=== PATIENT | male | born 1995 | race Caucasian/White ===

== ENCOUNTER 2017-01-09 18:28 | Emergency (ER) | payer OTHER ==
--- NOTE | 2017-01-09 18:59 | EDM.PDOC ---
ED HPI GENERAL MEDICAL PROBLEM - General Chief Complaint: Lower Extremity Injury/Pain Stated Complaint: LEFT ANKLE PAIN Time Seen by Provider: 01/09/17 18:57 Source of Information: Reports: Patient History Limitations: Reports: No Limitations - History of Present Illness INITIAL COMMENTS - FREE TEXT/NARRATIVE: HISTORY AND PHYSICAL: []21-year-old male presenting with left foot pain 3 days History of Present Illness: [Patient rolled his foot 3 days ago while at work/ arch of his foot is erythematous] Review of Systems: As per history of present illness and below otherwise all systems reviewed and negative. Past medical history: As per history of present illness and as reviewed below otherwise noncontributory. Surgical history: As per history of present illness and as reviewed below otherwise noncontributory. Social history: No reported history of drug or alcohol abuse. Family history: As per history of present illness and as reviewed below otherwise noncontributory. Physical exam: HEENT: Atraumatic, normocehpalic, pupils reactive, negative for conjunctival pallor or scleral icterus, mucous membranes moist, throat clear, neck supple, nontender, trachea midline. Lungs: Clear to auscultation, breath sounds equal bilaterally, chest non tender. Heart: S1S2, regular, negative for clicks, rubs, or JVD. Abdomen: Soft, nondistended, nontender. Negative for masses or hepatossplenmegaly. Negative for costovertebral tenderness. Pelvis: Stable nontender. Genitourinary: Deferred. Rectal: Deferred Extremities: Atraumatic, negative for cords or calf pain. Neurovascular unremarkable. Neuro: Awake, alert, oriented. Cranial nerves II through XII unremarkable. Cerebellum unremarkable. Motor and sensory unremarkable throughout. Exam nonfocal. X-ray shows a remote fracture of the navicular bone Discussed this with patient Will refer to orthopedist Diagnostics: [X-ray left foot] Therapeutics: [Walker boot] Impression: [Navicular bone fracture] Plan: []Discharged to home Contact orthopedics on Thursday for follow-up care is Admission for hydrocodone 10/325 one tablet every 6 hours as needed for pain #20 Definitive disposition and diagnosis as appropriate pending reevaluation and review of above. Onset: Sudden Duration: Day(s): (3) Location: Reports: Lower Extremity, Left Quality: Reports: Sharp, Throbbing Severity: Moderate Left Feet Pain Score (Numeric/FACES): 8 - Related Data Allergies Allergy/AdvReac Type Severity Reaction Status Date / Time No Known Allergies Allergy Verified 01/09/17 18:48 Home Meds: Home Meds . [No Known Home Meds] 01/09/17 [History] Past Medical History Musculoskeletal History: Reports: Other (See Below) Other Musculoskeletal History: Compartment syndrome Social & Family History - Family History Family Medical History: Noncontributory - Tobacco Use Smoking Status *Q: Current Every Day Smoker Years of Tobacco use: 5 Packs/Tins Daily: 0.5 - Caffeine Use Caffeine Use: Reports: Coffee, Energy Drinks, Soda - Recreational Drug Use Recreational Drug Use: No Review of Systems - Review of Systems Review Of Systems: ROS reveals no pertinent complaints other than HPI. ED EXAM, GENERAL - Physical Exam Exam: See Below (see dictation) Course - Vital Signs Last Recorded V/S: Last Vital Signs Temp 37.0 C 01/09/17 18:48 Pulse 99 01/09/17 18:48 Resp 18 01/09/17 18:48 BP 159/69 H 01/09/17 18:48 Pulse Ox 99 01/09/17 18:48 - Orders/Labs/Meds Orders: Active Orders 24 hr Category Date Time Status Foot 2V Lt [CR] Stat Exams 01/09/17 18:57 Taken DME for Discharge [COMM] Stat Oth 01/09/17 20:01 Ordered Departure - Departure Time of Disposition: 20:14 Disposition: Home, Self-Care 01 Condition: Good Clinical Impression: Foot fracture, left Qualifiers: Encounter type: initial encounter Fracture type: closed Qualified Code(s): S92.902A - Unspecified fracture of left foot, initial encounter for closed fracture - Discharge Information Instructions: Cast or Splint Care, [id number] Referrals: PCP,None [Primary Care Provider] - Forms: ED Department Discharge Additional Instructions: The following information is given to patients seen in the emergency department who are being discharged to home. This information is to outline your options for follow-up care. We provide all patients seen in our emergency department with a follow-up referral. The need for follow-up, as well as the timing and circumstances, are variable depending upon the specifics of your emergency department visit. If you don't have a primary care physician on staff, we will provide you with a referral. We always advise you to contact your personal physician following an emergency department visit to inform them of the circumstance of the visit and for follow-up with them and/or the need for any referrals to a consulting specialist. The emergency department will also refer you to a specialist when appropriate. This referral assures that you have the opportunity for followup care with a specialist. All of these measure are taken in an effort to provide you with optimal care, which includes your followup. Under all circumstances we always encourage you to contact your private physician who remains a resource for coordinating your care. When calling for followup care, please make the office aware that this follow-up is from your recent emergency room visit. If for any reason you are refused follow-up, please contact the [facility] emergency department at and asked to speak to the emergency department charge nurse. Prescription has been written for hydrocodone/APAP 10/325 mg one every 6 hours as needed for pain #20 no refill Keep foot elevated ice on 20 minutes off 20 minutes Keep foot in the Cam Walker boot that you have been fitted for Follow-up with e learning specialist next week Dr. Farheen Mc [facility] - [facility] Professional [address], [address] [place] [address] [facility]# [phone] - My Orders Last 24 Hours: My Active Orders 01/09/17 18:57 Foot 2V Lt [CR] Stat 01/09/17 20:01 DME for Discharge [COMM] Stat - Assessment/Plan Last 24 Hours: My Active Orders 01/09/17 18:57 Foot 2V Lt [CR] Stat 01/09/17 20:01 DME for Discharge [COMM] Stat
[2017-01-09] MEDS ORDERED: Acetaminophen/HYDROcodone 325-10 MG Tab PO ONE (20:19)
--- NOTE | 2017-01-11 06:15 | CR ---
EXAM DATE: 01/09/17 PATIENT'S AGE: 21 Patient: KIMMIE GUERRERO Facility: [place], [place] Site . Site : 1995 Study: XRay Extremity foot [id number]/24/2017 7:16:51 PM Ordering Physician: Doctor Isabel Final Report: INDICATION: Pain x2 days with swelling. Patient states he stepped on something. TECHNIQUE: Two views left foot COMPARISON: None FINDINGS: Bones: Probable remote fracture involving the dorsal aspect of the navicular bone. Joint spaces: Unremarkable. Soft tissues: Soft tissue edema dorsal to the navicular bone. No evidence of radiopaque foreign bodies. IMPRESSION: No evidence of radiopaque foreign bodies. Probable remote fracture involving the dorsal aspect of the navicular bone with adjacent dorsal soft tissue edema. Dictated by Kendell Quinn MD @ 01/09/2017 7:29:15 PM Dictated by: Kendell Quinn MD @ 01/09/2017 19:29:45 (Electronic Signature) Report Signed by Proxy. MARION
== END 2017-01-09 20:40 | disposition home or self-care (01) ==
LOC: MW.ED 18:28
DX: S92.252A Displaced fracture of navicular [scaphoid] of left foot, initial encounter for closed fracture (principal); F17.210 Nicotine dependence, cigarettes, uncomplicated; X50.9XXA Other and unspecified overexertion or strenuous movements or postures, initial encounter; Y99.0 Civilian activity done for income or pay
CPT/HCPCS: 73620; 99283; A9270; 99282

== ENCOUNTER 2017-04-08 00:18 | Emergency (ER) | payer OTHER ==
--- NOTE | 2017-04-08 00:41 | EDM.PDOC ---
ED HPI GENERAL MEDICAL PROBLEM - General Chief Complaint: Lower Extremity Injury/Pain Stated Complaint: INFECTION IN RIGHT FOOT Time Seen by Provider: 04/08/17 00:45 - History of Present Illness INITIAL COMMENTS - FREE TEXT/NARRATIVE: HISTORY AND PHYSICAL: History of present illness: Patient's a 21-year-old white male with history of IV drug abuse is currently actively using a history of either osteomyelitis or septic arthritis he is unsure he states it was a bone infection in his right ankle he states he was treated with IV antibiotics for approximately 2 months this had resolved he returns now after removed [place] restarted using IV drugs again with right ankle and foot pain and swelling and no fever chills nausea vomiting or other complaints and is here for evaluation he denies trauma. Review of systems: As per history of present illness and below otherwise all systems reviewed and negative. Past medical history: As per history of present illness and as reviewed below otherwise noncontributory. Surgical history: As per history of present illness and as reviewed below otherwise noncontributory. Social history: No reported history of drug or alcohol abuse. Family history: As per history of present illness and as reviewed below otherwise noncontributory. Physical exam: HEENT: Atraumatic, normocephalic, pupils reactive, negative for conjunctival pallor or scleral icterus, mucous membranes moist, throat clear, neck supple, nontender, trachea midline. Lungs: Clear to auscultation, breath sounds equal bilaterally, chest nontender. Heart: S1S2, regular, negative for clicks, rubs, or JVD. Abdomen: Soft, nondistended, nontender. Negative for masses or hepatosplenomegaly. Negative for costovertebral tenderness. Pelvis: Stable nontender. Genitourinary: Deferred. Rectal: Deferred. Extremities: Patient has some swelling in tenderness to palpation of his right ankle and foot is no crepitation point tenderness no erythema and no warmth neurovascular exam serous are unremarkable Neuro: Awake, alert, oriented. Cranial nerves II through XII unremarkable. Cerebellum unremarkable. Motor and sensory unremarkable throughout. Exam nonfocal. Diagnostics: CBC CMP uric acid blood culture 2 ESR CRP x-ray right ankle/foot Therapeutics: To be determined Impression: #1 right ankle/foot pain etiology to be determined #2 history of IV drug abuse Definitive disposition and diagnosis as appropriate pending reevaluation and review of above. right ankle Pain Score (Numeric/FACES): 5 - Related Data Allergies Allergy/AdvReac Type Severity Reaction Status Date / Time No Known Allergies Allergy Verified 04/08/17 00:30 Home Meds: Home Meds . [No Known Home Meds] 01/09/17 [History] Past Medical History Musculoskeletal History: Reports: Other (See Below) Other Musculoskeletal History: Compartment syndrome Social & Family History - Family History Family Medical History: Noncontributory - Tobacco Use Smoking Status *Q: Current Every Day Smoker Years of Tobacco use: 5 Packs/Tins Daily: 0.5 - Caffeine Use Caffeine Use: Reports: Coffee, Energy Drinks, Soda - Recreational Drug Use Recreational Drug Use: No Review of Systems - Review of Systems Review Of Systems: ROS reveals no pertinent complaints other than HPI. ED EXAM, GENERAL - Physical Exam Exam: See Below (The dictation) Course - Vital Signs Text/Narrative:: Patient's ED course has been unremarkable his ankle exam remains negative for any evidence of septic arthritis he has full range of motion CBC had a normal white count and CRP and ESR were elevated he remained afebrile I discussed with patient and referred him for orthopedic evaluation in a.m. I will notify orthopedic surgery in morning to make them aware of his presentation and past medical history we were unable to secure records [id number] patient understands and agrees. Last Recorded V/S: Last Vital Signs Temp 36.8 C 04/08/17 02:07 Pulse 70 04/08/17 02:07 Resp 18 04/08/17 02:07 BP 118/78 04/08/17 02:07 Pulse Ox 98 04/08/17 02:07 - Orders/Labs/Meds Labs: Laboratory Tests 04/08/17 04/08/17 04/08/17 Range/Units 01:09 01:09 01:24 WBC 8.29 (4.0-11.0) K/uL RBC 4.48 L (4.50-5.90) M/uL Hgb 13.7 (13.0-17.0) g/dL Hct 39.1 (38.0-50.0) % MCV 87.3 (80.0-98.0) fL MCH 30.6 (27.0-32.0) pg MCHC 35.0 (31.0-37.0) g/dL RDW Std Deviation 40.7 (28.0-62.0) fl RDW Coeff of Gerald 13 (11.0-15.0) % Plt Count 287 (150-400) K/uL MPV 9.80 (7.40-12.00) fL Neut % (Auto) 65.6 (48.0-80.0) % Lymph % (Auto) 26.3 (16.0-40.0) % [place] % (Auto) 7.1 (0.0-15.0) % Eos % (Auto) 0.8 (0.0-7.0) % Baso % (Auto) 0.2 (0.0-1.5) % Neut # (Auto) 5.4 (1.4-5.7) K/uL Lymph # (Auto) 2.2 (0.6-2.4) K/uL [place] # (Auto) 0.6 (0.0-0.8) K/uL Eos # (Auto) 0.1 (0.0-0.7) K/uL Baso # (Auto) 0.0 (0.0-0.1) K/uL ESR 20 H (0-14) mm/hr Sodium 143 (136-146) mmol/L Potassium 3.8 (3.5-5.1) mmol/L Chloride 107 (98-110) mmol/L Carbon Dioxide 24 (21-31) mmol/L BUN 10 (6.0-23.0) mg/dL Creatinine 0.7 (0.6-1.5) mg/dL Est Cr Clr Drug Dosing 153.99 mL/min Estimated GFR (MDRD) > 60.0 ml/min Glucose 113 H (60-110) mg/dL Uric Acid 3.0 (2.1-7.4) mg/dL Calcium 9.9 (8.8-10.8) mg/dL Total Bilirubin 0.6 (0.1-1.5) mg/dL AST 49 H (5-40) IU/L ALT 82 H (8-54) IU/L Alkaline Phosphatase 104 (40-150) C-Reactive Protein 5.20 H (0.0-0.5) mg/dL Total Protein 8.0 (6.0-8.0) g/dL Albumin 4.4 (3.5-5.0) g/dL Globulin 3.6 H (2.0-3.5) g/dL Albumin/Globulin Ratio 1.2 L (1.3-2.8) Urine Color YELLOW Urine Appearance CLEAR Urine pH 6.0 (5.0-8.0) Ur Specific [place] 1.010 (1.001-1.035) Urine Protein NEGATIVE (NEGATIVE) mg/dL Urine Glucose (UA) NEGATIVE (NEGATIVE) mg/dL Urine Ketones NEGATIVE (NEGATIVE) mg/dL Urine Occult Blood NEGATIVE (NEGATIVE) Urine Nitrite NEGATIVE (NEGATIVE) Urine Bilirubin NEGATIVE (NEGATIVE) Urine Urobilinogen 0.2 (<2.0) EU/dL Ur Leukocyte Esterase NEGATIVE (NEGATIVE) Urine RBC 0-1 (0-2/HPF) Urine WBC 0-1 (0-5/HPF) Ur Epithelial Cells RARE (NONE-FEW) Urine Bacteria RARE (NEGATIVE) Urine Opiates Screen (NEGATIVE) Ur Oxycodone Screen (NEGATIVE) Urine Methadone Screen (NEGATIVE) Ur Barbiturates Screen (NEGATIVE) Ur Phencyclidine Scrn (NEGATIVE) Ur Amphetamine Screen (NEGATIVE) U Methamphetamines Scrn (NEGATIVE) U Benzodiazepines Scrn (NEGATIVE) U Cocaine Metab Screen (NEGATIVE) U Marijuana (THC) Screen (NEGATIVE) 04/08/17 Range/Units 01:24 WBC (4.0-11.0) K/uL RBC (4.50-5.90) M/uL Hgb (13.0-17.0) g/dL Hct (38.0-50.0) % MCV (80.0-98.0) fL MCH (27.0-32.0) pg MCHC (31.0-37.0) g/dL RDW Std Deviation (28.0-62.0) fl RDW Coeff of Gerald (11.0-15.0) % Plt Count (150-400) K/uL MPV (7.40-12.00) fL Neut % (Auto) (48.0-80.0) % Lymph % (Auto) (16.0-40.0) % [place] % (Auto) (0.0-15.0) % Eos % (Auto) (0.0-7.0) % Baso % (Auto) (0.0-1.5) % Neut # (Auto) (1.4-5.7) K/uL Lymph # (Auto) (0.6-2.4) K/uL [place] # (Auto) (0.0-0.8) K/uL Eos # (Auto) (0.0-0.7) K/uL Baso # (Auto) (0.0-0.1) K/uL ESR (0-14) mm/hr Sodium (136-146) mmol/L Potassium (3.5-5.1) mmol/L Chloride (98-110) mmol/L Carbon Dioxide (21-31) mmol/L BUN (6.0-23.0) mg/dL Creatinine (0.6-1.5) mg/dL Est Cr Clr Drug Dosing mL/min Estimated GFR (MDRD) ml/min Glucose (60-110) mg/dL Uric Acid (2.1-7.4) mg/dL Calcium (8.8-10.8) mg/dL Total Bilirubin (0.1-1.5) mg/dL AST (5-40) IU/L ALT (8-54) IU/L Alkaline Phosphatase (40-150) C-Reactive Protein (0.0-0.5) mg/dL Total Protein (6.0-8.0) g/dL Albumin (3.5-5.0) g/dL Globulin (2.0-3.5) g/dL Albumin/Globulin Ratio (1.3-2.8) Urine Color Urine Appearance Urine pH (5.0-8.0) Ur Specific [place] (1.001-1.035) Urine Protein (NEGATIVE) mg/dL Urine Glucose (UA) (NEGATIVE) mg/dL Urine Ketones (NEGATIVE) mg/dL Urine Occult Blood (NEGATIVE) Urine Nitrite (NEGATIVE) Urine Bilirubin (NEGATIVE) Urine Urobilinogen (<2.0) EU/dL Ur Leukocyte Esterase (NEGATIVE) Urine RBC (0-2/HPF) Urine WBC (0-5/HPF) Ur Epithelial Cells (NONE-FEW) Urine Bacteria (NEGATIVE) Urine Opiates Screen POSITIVE (NEGATIVE) Ur Oxycodone Screen NEGATIVE (NEGATIVE) Urine Methadone Screen NEGATIVE (NEGATIVE) Ur Barbiturates Screen NEGATIVE (NEGATIVE) Ur Phencyclidine Scrn NEGATIVE (NEGATIVE) Ur Amphetamine Screen NEGATIVE (NEGATIVE) U Methamphetamines Scrn POSITIVE (NEGATIVE) U Benzodiazepines Scrn NEGATIVE (NEGATIVE) U Cocaine Metab Screen NEGATIVE (NEGATIVE) U Marijuana (THC) Screen NEGATIVE (NEGATIVE) Departure - Departure Time of Disposition: 02:00 Disposition: Home, Self-Care 01 Condition: Good Clinical Impression: History of intravenous drug abuse, Ankle pain, chronic - Discharge Information Instructions: Foot Pain Referrals: PCP,None [Primary Care Provider] - 1 Day (Follow up with orthopedics tomorrow for further care. It is imperative that you follow up.) Forms: ED Department Discharge Additional Instructions: The following information is given to patients seen in the emergency department who are being discharged to home. This information is to outline your options for follow-up care. We provide all patients seen in our emergency department with a follow-up referral. The need for follow-up, as well as the timing and circumstances, are variable depending upon the specifics of your emergency department visit. If you don't have a primary care physician on staff, we will provide you with a referral. We always advise you to contact your personal physician following an emergency department visit to inform them of the circumstance of the visit and for follow-up with them and/or the need for any referrals to a consulting specialist. The emergency department will also refer you to a specialist when appropriate. This referral assures that you have the opportunity for followup care with a specialist. All of these measure are taken in an effort to provide you with optimal care, which includes your followup. Under all circumstances we always encourage you to contact your private physician who remains a resource for coordinating your care. When calling for followup care, please make the office aware that this follow-up is from your recent emergency room visit. If for any reason you are refused follow-up, please contact the [facility] emergency department at and asked to speak to the emergency department charge nurse. [facility] - Orth[facility] Professional Building [address] [place] [address], [address] [place] [address] Follow-up orthopedic clinic as discussed call in a.m. return for persistent or worsening pain fever chills nausea vomiting swelling and as needed as discussed
[2017-04-08 01:47] LABS: CHLORIDE,CL 107 mmol/L (98-110); SODIUM,NA 143 mmol/L (136-146)
--- NOTE | 2017-04-08 14:33 | CR ---
EXAM DATE: 04/08/17 PATIENT'S AGE: 21 Patient: KIMMIE GUERRERO Facility: [place], [place] Site . 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 COMPARISON: None. FINDINGS: Bones: Alignment is normal. No fractures or bone lesions. Joint spaces: Unremarkable. Soft tissues: Unremarkable. IMPRESSION: Unremarkable right ankle. Dictated by: Kendell Quinn MD @ 04/08/2017 01:24:04 (Electronic Signature) Report Signed by Proxy. MARION
--- NOTE | 2017-04-08 14:34 | CR ---
EXAM DATE: 04/08/17 PATIENT'S AGE: 21 Patient: KIMMIE GUERRERO Facility: [place], [place] Site . Site : 1995 Study: XRay Extremity Right Foot [id number]/21/2018 1:11:12 AM Ordering Physician: Viri Patel Final Report: INDICATION: The mid to superior aspect of the foot TECHNIQUE: Two views right foot COMPARISON: None FINDINGS: Bones: Alignment is normal. No fractures or bone lesions. Joint spaces: Unremarkable. Soft tissues: Soft tissue edema dorsal to the midfoot. IMPRESSION: Soft tissue edema dorsal to the midfoot. Dictated by Kendell Quinn MD @ 04/08/2017 1:26:55 AM Dictated by: Kendell Quinn MD @ 04/08/2017 01:27:03 (Electronic Signature) Report Signed by Proxy. MARION
== END 2017-04-08 02:07 | disposition home or self-care (01) ==
LOC: MW.ED 00:18
DX: M25.571 Pain in right ankle and joints of right foot (principal); G89.29 Other chronic pain; F17.210 Nicotine dependence, cigarettes, uncomplicated; Z87.898 Personal history of other specified conditions
CPT/HCPCS: 36415; 73610-26-RT; 73610-RT; 73620-26-RT; 73620-RT; 80053; 80305; 81001; 84550; 85025; 85652; 86140; 87040; 87077; 87186; 99283